=== PATIENT | male | born 1945 | race Caucasian/White ===

== ENCOUNTER 2023-11-28 16:48 | Inpatient (IN) | payer OTHER ==
[2023-11-28] MEDS: PROPOFOL 200 MG/20 ML VIAL IV SCH (16:32)
[2023-11-28] MEDS: Rocuronium Bromide 10 MG/ML (10ML VIAL) IVP SCH (16:37)
[2023-11-28] MEDS: Propofol 1,000 MG/100 ML VIAL IV PRN (16:45)
[2023-11-28 17:09] LABS: Actual Bicarbonate (HCO3a) 28.5 mEq/L (22-28); Base Excess (BEa) 2.6 mEq/L (-2.0 to +3.0); CO2 Tension 50.2 mmHg (35.0-45.0); Calcium, Ionized (arterial) 1.11 mmol/L (1.12-1.30); Carboxyhemoglobin (COHb) 0.8 gm% (0.0-3.0); Hematocrit-ABG 30 % (42.0-52.0); Hemoglobin (Hb) 10.1 g/dL (14.0-18.0); Potassium - ABG Lab 3.62 mmol/L (3.70-5.30); pH, Arterial 7.372 (7.35-7.45)
[2023-11-28] MEDS: Lorazepam 2 MG/ML VIAL SLOW IVP PRN (17:10)
[2023-11-28 17:12] LABS: O2 Tension (PaO2), arterial 54.4 mmHg (> 70.0); Puncture Site Left Radial
[2023-11-28] MEDS ORDERED: Ventilator Sedation Protocol 1 EACH FS SCH (17:52)
[2023-11-28] MEDS ORDERED: Fentanyl BOLUS 250 ML IVPB PRN (18:00)
[2023-11-28] MEDS ORDERED: Morphine 2 MG/ML VIAL SLOW IVP PRN (18:00)
[2023-11-28] MEDS ORDERED: DISCONTINUE PREVIOUS NARCOTIC PAIN MEDICATIONS AND BENZODIAZEPINES FS SCH (18:00)
[2023-11-28] MEDS ORDERED: Propofol BOLUS 1,000 MG/100 ML VIAL IV PRN (18:00)
[2023-11-28] MEDS ORDERED: Acetaminophen 650 MG Suppository PR PRN (18:10)
[2023-11-28] MEDS ORDERED: HYDROcodone/Acetaminophen 5/325 mg Tablet PO PRN (18:10)
[2023-11-28] MEDS ORDERED: Ondansetron PF 4 MG/2 ML Vial IVP PRN (18:10)
[2023-11-28] MEDS ORDERED: Acetaminophen 325 MG TAB PO PRN (18:10)
[2023-11-28] MEDS ORDERED: Electrolyte Replacement Protocol 1 EACH FS SCH (18:15)
[2023-11-28] MEDS: Ipratropium/Albuterol 3 ML NEB NEB SCH (18:37)
[2023-11-28] MEDS: Lorazepam 2 MG/ML VIAL ONE (18:43)
[2023-11-28] MEDS ORDERED: Vecuronium 10 MG VIAL IVP PRN (19:12)
[2023-11-28] MEDS: Meropenem 1 GM in Sodium Chloride 0.9% 100 ML IVPB SCH (19:51)
[2023-11-28] MEDS: Furosemide 40 MG (4 mL) VIAL IVP SCH (19:51)
[2023-11-28] MEDS: methylPREDNISolone Sod Succ 40 MG VIAL IVP SCH (19:52)
[2023-11-28] MEDS ORDERED: Famotidine/PF 20 mg/2ml Vial SLOW IVP SCH (21:00)
[2023-11-28] MEDS ORDERED: Vancomycin 1 GM in Premix 1 BAG IVPB SCH (21:00)
[2023-11-28] MEDS: Vancomycin (BATCH) 2.5 GM in Premix 1 BAG IVPB SCH (21:06)
[2023-11-28 21:48] LABS: #Basophils Less than 0.03 10x3/uL (0.0-0.2); #Eosinphils Less than 0.03 10x3/uL (0.0-0.7); %Basophils 0.1 % (0.0-1.0); %Lymphocytes 1.8 % (21.0-51.0); %Monocytes 5.5 % (0.0-10.0); %Neutrophils 91.9 % (42.0-75.0); Hematocrit 29.1 % (42.0-52.0); Hemoglobin 8.3 g/dL (14.0-18.0); Mean Corpuscular HGB CONC 28.5 g/dL (32.0-36.0); Mean Corpuscular Hemoglobin 24.2 pg (27.0-31.0); Mean Corpuscular Volume 84.8 fL (78.0-98.0); Mean Platelet Volume 10.1 fL (7.4-10.4); Platelet Count 167 10x3/uL (130-400); RBC Distribution Width 25.1 % (11.5-14.5); Red Blood Cell (RBC) Count 3.43 mill/uL (4.70-6.10)
[2023-11-28 21:54] LABS: INR-International Normal Ratio 1.6; PTT 38.9 sec (22.9-36.1); Prothrombin Time 18.9 sec (12.0-14.7)
[2023-11-28 22:08] LABS: ALT (SGPT) 43 U/L (8-55); AST (SGOT) 21 U/L (5-34); Albumin 3.7 g/dL (3.4-4.8); Alkaline Phosphatase 75 U/L (40-110); Anion Gap 16 mmol/L (10-20); BUN (Urea Nitrogen) 71 mg/dL (8.4-25.7); Calc. Creatinine Clearance 54 mL/min (70-130); Carbon Dioxide 24 mmol/L (23-31); Chloride 110 mmol/L (98-107); Estimated GFR 42; Glucose 184 mg/dL (83-110); Potassium 3.4 mmol/L (3.5-5.1); Protein, Total 5.7 g/dL (5.8-8.1); Sodium 147 mmol/L (136-145)
[2023-11-28 22:11] LABS: Anisocytosis MODERATE=16-30 cells HPF (0-5); Hypochromia SLIGHT = 6-15 cells HPF (0-5); Macrocytosis SLIGHT = 6-15 cells HPF (0-5); Ovalocytes MODERATE= 6-15 cells HPF (0-1); Platelet Adequacy Comment Platelets Normal; Poikilocytosis SLIGHT = 6-15 cells HPF (0-5); Polychromasia SLIGHT = 2-3 cells HPF (0-2); RBC Morphology Within Normal Limits
[2023-11-29] MEDS: Potassium Chloride 20 MEQ in Premix 1 BAG IVPB SCH ×2 (01:11→08:00)
[2023-11-29 04:36] LABS: #Basophils Less than 0.03 10x3/uL (0.0-0.2); #Eosinphils Less than 0.03 10x3/uL (0.0-0.7); %Basophils 0.1 % (0.0-1.0); %Lymphocytes 2.4 % (21.0-51.0); %Neutrophils 92.9 % (42.0-75.0); Hematocrit 27.2 % (42.0-52.0); Hemoglobin 7.7 g/dL (14.0-18.0); Mean Corpuscular HGB CONC 28.3 g/dL (32.0-36.0); Mean Corpuscular Hemoglobin 24.1 pg (27.0-31.0); Platelet Count 169 10x3/uL (130-400); RBC Distribution Width 24.7 % (11.5-14.5)
[2023-11-29 04:46] LABS: INR-International Normal Ratio 1.6; Prothrombin Time 19.5 sec (12.0-14.7)
[2023-11-29 04:49] LABS: ALT (SGPT) 39 U/L (8-55); AST (SGOT) 16 U/L (5-34); Albumin 3.4 g/dL (3.4-4.8); Alkaline Phosphatase 68 U/L (40-110); Anion Gap 19 mmol/L (10-20); BUN (Urea Nitrogen) 73 mg/dL (8.4-25.7); Bilirubin, Total 1.1 mg/dL (0.2-1.2); Calc. Creatinine Clearance 53 mL/min (70-130); Calcium 8.1 mg/dL (7.8-10.44); Carbon Dioxide 23 mmol/L (23-31); Chloride 111 mmol/L (98-107); Estimated GFR 42; Globulin 2.1 g/dL (2.4-3.5); Glucose 172 mg/dL (83-110); Magnesium 2.6 mg/dL (1.6-2.6); Phosphorus 4.6 mg/dL (2.3-4.7); Potassium 3.5 mmol/L (3.5-5.1); Protein, Total 5.5 g/dL (5.8-8.1); Sodium 149 mmol/L (136-145)
[2023-11-29] MEDS: Meropenem 1 GM in Sodium Chloride 0.9% 100 ML IVPB SCH ×2 (05:17→23:00)
[2023-11-29] MEDS: Fentanyl CADD 100 ML IV SCH (05:34)
[2023-11-29] MEDS: Pantoprazole 40 MG VIAL IVP SCH (08:00)
[2023-11-29] MEDS: Enoxaparin 40 MG (0.4 mL) SYRINGE SC SCH (08:00)
[2023-11-29] MEDS: Furosemide 40 MG (4 mL) VIAL SLOW IVP SCH (08:50)
[2023-11-29] MEDS ORDERED: Dextrose 5% in Water 1,000 ML IV PRN (09:00)
[2023-11-29] MEDS ORDERED: Dextrose 50% Abboject 50 ML SYRINGE SLOW IVP PRN (09:00)
[2023-11-29] MEDS ORDERED: Glucagon 1 MG/ML KIT IM PRN (09:00)
[2023-11-29 10:42] LABS: HIV (1/2) Antibody/Antigen NONREACTIVE (NonReactive); HIV 1/2 INDEX 0.05 S/CO (<1.00)
[2023-11-29] MEDS: Insulin Regular, Human 100 UNIT/ML 10 ML VIAL SC PRN (10:54)
[2023-11-29] MEDS ORDERED: Vancomycin (BATCH) 1.5 GM in Premix 1 BAG IVPB SCH (20:00)
[2023-11-29] MEDS: Vancomycin 1 GM in Premix 1 BAG IVPB SCH (20:30)
[2023-11-30 04:59] LABS: Vancomycin, Random 26.3 ug/mL (See Comment)
[2023-11-30 05:00] LABS: Anion Gap 14 mmol/L (10-20); BUN (Urea Nitrogen) 80 mg/dL (8.4-25.7); Calc. Creatinine Clearance 59 mL/min (70-130); Calcium 8.4 mg/dL (7.8-10.44); Carbon Dioxide 26 mmol/L (23-31); Chloride 112 mmol/L (98-107); Estimated GFR 48; Glucose 187 mg/dL (83-110); Potassium 3.8 mmol/L (3.5-5.1); Sodium 148 mmol/L (136-145)
[2023-11-30] MEDS: Furosemide 20 MG (2 mL) VIAL SLOW IVP SCH (09:00)
[2023-11-30] MEDS: hydrALAZINE 20 MG/ML VIAL SLOW IVP PRN (10:40)
[2023-11-30] MEDS: methylPREDNISolone Sod Succ 40 MG VIAL IVP SCH (17:30)
[2023-12-01 05:17] LABS: Anion Gap 16 mmol/L (10-20); BUN (Urea Nitrogen) 78 mg/dL (8.4-25.7); Calc. Creatinine Clearance 70 mL/min (70-130); Calcium 8.5 mg/dL (7.8-10.44); Carbon Dioxide 25 mmol/L (23-31); Chloride 118 mmol/L (98-107); Estimated GFR 60; Glucose 160 mg/dL (83-110); Sodium 155 mmol/L (136-145)
[2023-12-01] MEDS: Dextrose 5 %-0.45 % NaCl 1,000 ML IV SCH (09:48)
[2023-12-01] MEDS: Furosemide 20 MG (2 mL) VIAL SLOW IVP SCH (09:49)
[2023-12-01] MEDS: Carvedilol 6.25 MG TAB PO SCH ×2 (12:02→20:33)
[2023-12-01] MEDS: Losartan 25 MG TAB PO SCH (12:03)
[2023-12-01] MEDS: Rivaroxaban 10 MG TAB PO SCH (17:29)
[2023-12-01] MEDS: Meropenem 1 GM in Sodium Chloride 0.9% 100 ML IVPB SCH (17:29)
[2023-12-01 18:28] LABS: Anion Gap 16 mmol/L (10-20); BUN (Urea Nitrogen) 78 mg/dL (8.4-25.7); Calc. Creatinine Clearance 62 mL/min (70-130); Calcium 8.5 mg/dL (7.8-10.44); Carbon Dioxide 23 mmol/L (23-31); Chloride 112 mmol/L (98-107); Estimated GFR 52; Glucose 118 mg/dL (83-110); Sodium 146 mmol/L (136-145)
[2023-12-01] MEDS: Amiodarone 200 MG TAB PO SCH (20:32)
[2023-12-01] MEDS: Atorvastatin Calcium 40 MG TAB PO SCH (20:33)
[2023-12-01] MEDS: Terazosin HCl 1 MG CAP PO SCH (20:33)
[2023-12-02 04:54] LABS: Anion Gap 13 mmol/L (10-20); BUN (Urea Nitrogen) 83 mg/dL (8.4-25.7); Calc. Creatinine Clearance 69 mL/min (70-130); Calcium 7.8 mg/dL (7.8-10.44); Carbon Dioxide 26 mmol/L (23-31); Chloride 111 mmol/L (98-107); Estimated GFR 59; Glucose 132 mg/dL (83-110); Potassium 4.2 mmol/L (3.5-5.1); Sodium 146 mmol/L (136-145)
[2023-12-02] MEDS: Isosorbide Mononitrate 30 MG ER.TAB PO SCH (08:50)
[2023-12-02] MEDS: Aspirin 81 mg Enteric Coated Tablet PO SCH (08:51)
[2023-12-02] MEDS: Pantoprazole DR 40 MG TAB PO SCH (08:52)
[2023-12-02] MEDS: methylPREDNISolone Sod Succ 40 MG VIAL IVP SCH (08:52)
[2023-12-02] MEDS: Losartan 25 MG TAB PO SCH (10:56)
[2023-12-02 12:41] LABS: A1c 48.42 g/dL; Hb (HGBA1c) 1511.3447 umol/L; Hemoglobin A1c 5.1 % (4.0-6.0)
[2023-12-03 05:20] LABS: Anion Gap 12 mmol/L (10-20); BUN (Urea Nitrogen) 85 mg/dL (8.4-25.7); Calc. Creatinine Clearance 65 mL/min (70-130); Calcium 7.4 mg/dL (7.8-10.44); Carbon Dioxide 24 mmol/L (23-31); Chloride 110 mmol/L (98-107); Estimated GFR 52; Glucose 106 mg/dL (83-110); Potassium 4.3 mmol/L (3.5-5.1); Sodium 142 mmol/L (136-145)
[2023-12-03] MEDS: Propofol 1,000 MG/100 ML VIAL IV ONE (19:47)
[2023-12-04 04:12] LABS: Actual Bicarbonate (HCO3a) 22.6 mEq/L (22-28); Base Excess (BEa) -0.2 mEq/L (-2.0 to +3.0); Carboxyhemoglobin (COHb) 1.4 gm% (0.0-3.0); Hematocrit-ABG 29 % (42.0-52.0); Hemoglobin (Hb) 9.9 g/dL (14.0-18.0); Potassium - ABG Lab 4.39 mmol/L (3.70-5.30); pH, Arterial 7.494 (7.35-7.45)
[2023-12-04 04:17] LABS: Puncture Site LRA
[2023-12-04] MEDS: CALCIUM GLUC 1 GM/NS 50 ML 1 GM in Premix 1 BAG IVPB SCH (05:59)
[2023-12-04 07:32] LABS: #Basophils 0.03 10x3/uL (0.0-0.2); %Basophils 0.2 % (0.0-1.0); %Eosinophils 2.2 % (0.0-10.0); %Lymphocytes 5.1 % (21.0-51.0); %Monocytes 7.7 % (0.0-10.0); %Neutrophils 82.7 % (42.0-75.0); Hematocrit 32.9 % (42.0-52.0); Hemoglobin 9.3 g/dL (14.0-18.0); Mean Corpuscular HGB CONC 28.3 g/dL (32.0-36.0); Mean Corpuscular Hemoglobin 24.5 pg (27.0-31.0); Mean Corpuscular Volume 86.6 fL (78.0-98.0); Platelet Count 148 10x3/uL (130-400); RBC Distribution Width 26.5 % (11.5-14.5)
[2023-12-04 07:42] LABS: Anion Gap 19 mmol/L (10-20); BUN (Urea Nitrogen) 64 mg/dL (8.4-25.7); Calc. Creatinine Clearance 82 mL/min (70-130); Calcium 7.8 mg/dL (7.8-10.44); Carbon Dioxide 17 mmol/L (23-31); Chloride 111 mmol/L (98-107); Estimated GFR 68; Glucose 75 mg/dL (83-110); Sodium 142 mmol/L (136-145)
[2023-12-04 08:02] LABS: Anisocytosis MODERATE=16-30 cells HPF (0-5); Burr Cells SLIGHT = 2-5 cells HPF (0-1); Elliptocytes SLIGHT = 2-5 cells HPF (0-1); Platelet Adequacy Comment Platelets Normal; Poikilocytosis SLIGHT = 6-15 cells HPF (0-5); Schistocytes SLIGHT = 2-5 cells HPF (0-1)
[2023-12-04 09:09] LABS: Actual Bicarbonate (HCO3a) 24.2 mEq/L (22-28); Base Excess (BEa) 1.2 mEq/L (-2.0 to +3.0); CO2 Tension 32.5 mmHg (35.0-45.0); Calcium, Ionized (arterial) 1.13 mmol/L (1.12-1.30); Carboxyhemoglobin (COHb) 1.3 gm% (0.0-3.0); Hematocrit-ABG 29 % (42.0-52.0); Hemoglobin (Hb) 9.8 g/dL (14.0-18.0); O2 Tension (PaO2), arterial 68.3 mmHg (> 70.0); Potassium - ABG Lab 4.36 mmol/L (3.70-5.30)
[2023-12-04 09:15] LABS: ALV-art Gradient 311.745 mmHg (0-20); Puncture Site RRA
[2023-12-04] MEDS: Furosemide 40 MG (4 mL) VIAL SLOW IVP SCH ×2 (10:50→15:32)
[2023-12-05 04:58] LABS: Hematocrit 29.3 % (42.0-52.0); Hemoglobin 8.4 g/dL (14.0-18.0); Mean Corpuscular HGB CONC 28.7 g/dL (32.0-36.0); Mean Corpuscular Hemoglobin 24.4 pg (27.0-31.0); Mean Corpuscular Volume 85.2 fL (78.0-98.0); Platelet Count 172 10x3/uL (130-400); RBC Distribution Width 25.9 % (11.5-14.5); Red Blood Cell (RBC) Count 3.44 mill/uL (4.70-6.10)
[2023-12-05 05:07] LABS: Anion Gap 10 mmol/L (10-20); BUN (Urea Nitrogen) 53 mg/dL (8.4-25.7); Calc. Creatinine Clearance 85 mL/min (70-130); Calcium 7.8 mg/dL (7.8-10.44); Carbon Dioxide 23 mmol/L (23-31); Chloride 109 mmol/L (98-107); Estimated GFR 70; Glucose 85 mg/dL (83-110); Potassium 4.2 mmol/L (3.5-5.1); Sodium 138 mmol/L (136-145)
[2023-12-05 10:14] LABS: Fungitell Beta (1,3) D-Glucan Negative (.)
[2023-12-06 07:17] LABS: Anion Gap 11 mmol/L (10-20); BUN (Urea Nitrogen) 51 mg/dL (8.4-25.7); Calc. Creatinine Clearance 84 mL/min (70-130); Calcium 7.8 mg/dL (7.8-10.44); Carbon Dioxide 23 mmol/L (23-31); Chloride 107 mmol/L (98-107); Estimated GFR 75; Glucose 88 mg/dL (83-110); Potassium 4.1 mmol/L (3.5-5.1); Sodium 137 mmol/L (136-145)
[2023-12-06] MEDS: Furosemide 40 MG TAB PO SCH (08:57)
[2023-12-06] MEDS: Docusate 100 MG CAP PO SCH (13:10)
[2023-12-06] MEDS: Polyethylene Glycol 3350 17 GM Packet PO SCH (13:10)
[2023-12-07] MEDS: Docusate 100 MG CAP PO SCH (08:51)
[2023-12-07] MEDS: Polyethylene Glycol 3350 17 GM Packet PO SCH (08:51)
[2023-12-07 09:35] LABS: Hematocrit 31.6 % (42.0-52.0); Hemoglobin 9.3 g/dL (14.0-18.0); Mean Corpuscular HGB CONC 29.4 g/dL (32.0-36.0); Mean Corpuscular Hemoglobin 24.3 pg (27.0-31.0); Mean Corpuscular Volume 82.7 fL (78.0-98.0); Platelet Count 246 10x3/uL (130-400); RBC Distribution Width 26.1 % (11.5-14.5); Red Blood Cell (RBC) Count 3.82 mill/uL (4.70-6.10)
[2023-12-07 11:29] LABS: Anion Gap 10 mmol/L (10-20); BUN (Urea Nitrogen) 47 mg/dL (8.4-25.7); Calc. Creatinine Clearance 78 mL/min (70-130); Carbon Dioxide 24 mmol/L (23-31); Chloride 108 mmol/L (98-107); Estimated GFR 68; Glucose 87 mg/dL (83-110); Potassium 4.1 mmol/L (3.5-5.1); Sodium 138 mmol/L (136-145)
[2023-12-07] MEDS: Bisacodyl 10 MG SUPP PR SCH (16:00)
[2023-12-08 06:23] LABS: Anion Gap 11 mmol/L (10-20); BUN (Urea Nitrogen) 42 mg/dL (8.4-25.7); Calc. Creatinine Clearance 75 mL/min (70-130); Calcium 7.7 mg/dL (7.8-10.44); Carbon Dioxide 25 mmol/L (23-31); Chloride 110 mmol/L (98-107); Estimated GFR 65; Glucose 74 mg/dL (83-110); Sodium 142 mmol/L (136-145)
[2023-12-08] MEDS: Lactulose 20 GM (30 mL) UDCUP PO SCH (09:24)
[2023-12-08] MEDS: Furosemide 40 MG TAB PO SCH (09:24)
[2023-12-08] MEDS ORDERED: Ipratropium/Albuterol 3 ML NEB NEB PRN (12:20)
[2023-12-09 06:52] LABS: Anion Gap 9 mmol/L (10-20); BUN (Urea Nitrogen) 37 mg/dL (8.4-25.7); Calc. Creatinine Clearance 77 mL/min (70-130); Calcium 7.3 mg/dL (7.8-10.44); Carbon Dioxide 25 mmol/L (23-31); Chloride 108 mmol/L (98-107); Estimated GFR 66; Glucose 107 mg/dL (83-110); Potassium 3.9 mmol/L (3.5-5.1); Sodium 138 mmol/L (136-145)
[2023-12-09] MEDS: Furosemide 40 MG TAB PO SCH (08:39)
[2023-12-10 05:56] LABS: Anion Gap 9 mmol/L (10-20); BUN (Urea Nitrogen) 29 mg/dL (8.4-25.7); Calc. Creatinine Clearance 89 mL/min (70-130); Calcium 7.4 mg/dL (7.8-10.44); Carbon Dioxide 26 mmol/L (23-31); Chloride 111 mmol/L (98-107); Estimated GFR 78; Glucose 85 mg/dL (83-110); Potassium 3.8 mmol/L (3.5-5.1); Sodium 142 mmol/L (136-145)
[2023-12-10] MEDS: Furosemide 40 MG TAB PO SCH (08:40)
[2023-12-11 05:51] LABS: #Basophils Less than 0.03 10x3/uL (0.0-0.2); %Basophils 0.1 % (0.0-1.0); %Eosinophils 1.8 % (0.0-10.0); %Lymphocytes 8.3 % (21.0-51.0); %Monocytes 6.4 % (0.0-10.0); %Neutrophils 82.9 % (42.0-75.0); Hematocrit 29.4 % (42.0-52.0); Hemoglobin 8.5 g/dL (14.0-18.0); Mean Corpuscular HGB CONC 28.9 g/dL (32.0-36.0); Mean Corpuscular Hemoglobin 24.6 pg (27.0-31.0); Platelet Count 195 10x3/uL (130-400); RBC Distribution Width 27.3 % (11.5-14.5); Red Blood Cell (RBC) Count 3.46 mill/uL (4.70-6.10)
[2023-12-11 06:29] LABS: Anion Gap 10 mmol/L (10-20); BUN (Urea Nitrogen) 23 mg/dL (8.4-25.7); Calc. Creatinine Clearance 96 mL/min (70-130); Calcium 7.8 mg/dL (7.8-10.44); Carbon Dioxide 26 mmol/L (23-31); Chloride 110 mmol/L (98-107); Estimated GFR 88; Glucose 92 mg/dL (83-110); Potassium 3.5 mmol/L (3.5-5.1); Sodium 142 mmol/L (136-145)
[2023-12-11 06:37] LABS: Anisocytosis SLIGHT = 6-15 cells HPF (0-5); Elliptocytes SLIGHT = 2-5 cells HPF (0-1); Hypochromia SLIGHT = 6-15 cells HPF (0-5); Microcytosis SLIGHT = 6-15 cells HPF (0-5); Platelet Adequacy Comment Platelets Normal; Polychromasia SLIGHT = 2-3 cells HPF (0-2)
[2023-12-11] MEDS: Potassium Chloride 20 MEQ TAB PO SCH (09:04)
[2023-12-11 20:30] VITALS: BMI 28.8
[2023-12-12 10:23] LABS: Anion Gap 11 mmol/L (10-20); BUN (Urea Nitrogen) 18 mg/dL (8.4-25.7); Calc. Creatinine Clearance 97 mL/min (70-130); Calcium 7.6 mg/dL (7.8-10.44); Carbon Dioxide 24 mmol/L (23-31); Chloride 111 mmol/L (98-107); Estimated GFR 89; Glucose 124 mg/dL (83-110); Potassium 3.7 mmol/L (3.5-5.1); Sodium 142 mmol/L (136-145)
[2023-12-13 05:04] VITALS: BMI 29.4
[2023-12-13 05:28] LABS: Anion Gap 12 mmol/L (10-20); BUN (Urea Nitrogen) 19 mg/dL (8.4-25.7); Calc. Creatinine Clearance 83 mL/min (70-130); Calcium 7.5 mg/dL (7.8-10.44); Carbon Dioxide 22 mmol/L (23-31); Chloride 110 mmol/L (98-107); Estimated GFR 75; Glucose 105 mg/dL (83-110); Potassium 3.5 mmol/L (3.5-5.1); Sodium 140 mmol/L (136-145)
[2023-12-14 07:55] LABS: Anion Gap 11 mmol/L (10-20); BUN (Urea Nitrogen) 23 mg/dL (8.4-25.7); Calc. Creatinine Clearance 100 mL/min (70-130); Calcium 7.6 mg/dL (7.8-10.44); Carbon Dioxide 21 mmol/L (23-31); Chloride 111 mmol/L (98-107); Estimated GFR 89; Glucose 95 mg/dL (83-110); Potassium 3.3 mmol/L (3.5-5.1); Sodium 140 mmol/L (136-145)
[2023-12-14] MEDS: Potassium Bicarbonate/Cit Ac 20 MEQ TAB PO SCH (08:26)
[2023-12-14] MEDS: Potassium Chloride 20 MEQ TAB PO SCH (09:59)
[2023-12-15 08:06] LABS: Anion Gap 12 mmol/L (10-20); BUN (Urea Nitrogen) 27 mg/dL (8.4-25.7); Calc. Creatinine Clearance 81 mL/min (70-130); Calcium 7.6 mg/dL (7.8-10.44); Carbon Dioxide 23 mmol/L (23-31); Chloride 111 mmol/L (98-107); Estimated GFR 74; Glucose 86 mg/dL (83-110); Potassium 3.4 mmol/L (3.5-5.1); Sodium 143 mmol/L (136-145)
[2023-12-15] MEDS: Potassium Chloride 20 MEQ TAB PO SCH (09:30)
[2023-12-15 14:45] LABS: Potassium 3.7 mmol/L (3.5-5.1)
[2023-12-16 07:44] LABS: Anion Gap 10 mmol/L (10-20); BUN (Urea Nitrogen) 28 mg/dL (8.4-25.7); Calc. Creatinine Clearance 79 mL/min (70-130); Calcium 7.6 mg/dL (7.8-10.44); Carbon Dioxide 22 mmol/L (23-31); Chloride 111 mmol/L (98-107); Estimated GFR 74; Glucose 97 mg/dL (83-110); Potassium 3.2 mmol/L (3.5-5.1); Sodium 140 mmol/L (136-145)
[2023-12-16] MEDS: Potassium Chloride 20 MEQ TAB PO SCH (08:27)
[2023-12-17 11:40] LABS: Anion Gap 8 mmol/L (10-20); BUN (Urea Nitrogen) 24 mg/dL (8.4-25.7); Calc. Creatinine Clearance 87 mL/min (70-130); Calcium 7.6 mg/dL (7.8-10.44); Carbon Dioxide 23 mmol/L (23-31); Chloride 112 mmol/L (98-107); Estimated GFR 84; Glucose 142 mg/dL (83-110); Potassium 3.3 mmol/L (3.5-5.1); Sodium 140 mmol/L (136-145)
[2023-12-17] MEDS: Potassium Chloride 20 MEQ TAB PO SCH (14:27)
[2023-12-17 17:07] VITALS: TEMP 98.2
[2023-12-17 19:34] VITALS: BP 158/55
[2023-12-18 14:32] LABS: Campy jejuni + coli by PCR Negative (Negative); STEC Shiga Toxin 1+2 Negative (Negative); Salmonella spp. by PCR Negative (Negative); Shigella spp + EIEC by PCR Negative (Negative)
== END 2023-12-17 21:15 | DRG 208 ==
LOC: EEVIPCON → CCU 17:03 → T4-A 12-03 12:20 → IMCU/EMU 12-04 05:12 → T4-A 12-06 16:03
PROVIDERS: ADMIT Family Medicine; ATTEND Internal Medicine
PROC: 5A1945Z Respiratory Ventilation, 24-96 Consecutive Hours (ICD-10-PCS; principal; 2023-11-28)
PROC: 0BJ08ZZ Inspection of Tracheobronchial Tree, Via Natural or Artificial Opening Endoscopic (ICD-10-PCS; 2023-11-28)
PROC: 0BH18EZ Insertion of Endotracheal Airway into Trachea, Via Natural or Artificial Opening Endoscopic (ICD-10-PCS; 2023-11-28)
PROC: 0D9670Z Drainage of Stomach with Drainage Device, Via Natural or Artificial Opening (ICD-10-PCS; 2023-11-28)
PROC: 3E0G76Z Introduction of Nutritional Substance into Upper GI, Via Natural or Artificial Opening (ICD-10-PCS; 2023-11-28)
PROC: 4A133R1 Monitoring of Arterial Saturation, Peripheral, Percutaneous Approach (ICD-10-PCS; 2023-11-28)
PROC: 5A09457 Assistance with Respiratory Ventilation, 24-96 Consecutive Hours, Continuous Positive Airway Pressure (ICD-10-PCS; 2023-11-30)
PROC: 5A0945A Assistance with Respiratory Ventilation, 24-96 Consecutive Hours, High Flow/Velocity Cannula (ICD-10-PCS; 2023-12-04)
DX: J96.01 Acute respiratory failure with hypoxia (principal); J18.9 Pneumonia, unspecified organism; G93.41 Metabolic encephalopathy; I50.33 Acute on chronic diastolic (congestive) heart failure; D62 Acute posthemorrhagic anemia; E87.0 Hyperosmolality and hypernatremia; Z66 Do not resuscitate; E87.6 Hypokalemia; I25.10 Atherosclerotic heart disease of native coronary artery without angina pectoris; J44.9 Chronic obstructive pulmonary disease, unspecified; R73.9 Hyperglycemia, unspecified; D72.810 Lymphocytopenia; I48.0 Paroxysmal atrial fibrillation; D50.9 Iron deficiency anemia, unspecified; K21.9 Gastro-esophageal reflux disease without esophagitis; N40.0 Benign prostatic hyperplasia without lower urinary tract symptoms; I11.0 Hypertensive heart disease with heart failure; Z95.2 Presence of prosthetic heart valve; Z85.820 Personal history of malignant melanoma of skin
CPT/HCPCS: 36415; 36416; 36600; 71045; 74018; 80048; 80053; 80202; 82805; 83036; 83605; 83735; 83880; 84100; 84145; 85025; 85027; 85610; 85730; 86141; 86850; 86900; 86901; 87040; 87070; 87205; 87324; 87389; 87449; 87505; 93005; 93010; 93306; 94002; 94003; 94640; 94660; C9113; J0360; J0613; J1650; J1815; J1940; J2060; J2185; J2704; J2920; J3010; J3370; J3370-JW; J3480; J3490; J7042; J7620